=== PATIENT | male | born 1970 | race Caucasian/White ===

== ENCOUNTER 2016-11-28 15:45 | Emergency (ER) | payer SELFPAY ==
[2016-11-28] MEDS ORDERED: Ketorolac 60 MG/2 ML SDV IM ONE (16:22)
--- NOTE | 2016-11-28 16:22 | EDM.PDOC ---
ED HPI GENERAL MEDICAL PROBLEM - General Chief Complaint: Lower Extremity Injury/Pain Stated Complaint: HIP PAIN Time Seen by Provider: 11/28/16 16:10 Source of Information: Reports: Patient History Limitations: Reports: No Limitations - History of Present Illness INITIAL COMMENTS - FREE TEXT/NARRATIVE: History of present illness: [46 are male comes in complaining of right hip pain status post stepping in a hole. Patient indicates that it is painful to ambulate and that he doesn't really per call how it happened.] Review of systems: As per history of present illness and below otherwise all systems reviewed and negative. Past medical history: As per history of present illness and as reviewed below otherwise noncontributory. Surgical history: As per history of present illness and as reviewed below otherwise noncontributory. Social history: No reported history of drug or alcohol abuse. Family history: As per history of present illness and as reviewed below otherwise noncontributory. Physical exam: HEENT: Atraumatic, normocephalic, pupils reactive, negative for conjunctival pallor or scleral icterus, mucous membranes moist, throat clear, neck supple, nontender, trachea midline. Lungs: Clear to auscultation, breath sounds equal bilaterally, chest nontender. Heart: S1S2, regular, negative for clicks, rubs, or JVD. Abdomen: Soft, nondistended, nontender. Negative for masses or hepatosplenomegaly. Negative for costovertebral tenderness. Pelvis: Stable nontender. Genitourinary: Deferred. Rectal: Deferred. Extremities: Atraumatic, negative for cords or calf pain. Neurovascular unremarkable. Neuro: Awake, alert, oriented. Cranial nerves II through XII unremarkable. Cerebellum unremarkable. Motor and sensory unremarkable throughout. Exam nonfocal. Assessment is benign save subjective complaint is noted in the history of present illness X-ray negative for fracture notice of degenerative discs in the lower lumbar spine and sacral region as well as a small osteophyte right humeral head Diagnostics: [A hip x-ray to] Therapeutics: [Toradol 60 mg IM] Impression: [Right hip pain] Plan: [OTC pain meds followup with PCP] Definitive disposition and diagnosis as appropriate pending reevaluation and review of above. Right Hip Pain Score (Numeric/FACES): 10 - Related Data Allergies Allergy/AdvReac Type Severity Reaction Status Date / Time No Known Allergies Allergy Verified 11/28/16 15:58 Home Meds: Home Meds . [No Known Home Meds] 03/29/16 [History] Past Medical History - Past Health History Medical/Surgical History: Denies Medical/Surgical History HEENT History: Reports: None Cardiovascular History: Reports: None Respiratory History: Reports: None Gastrointestinal History: Reports: None Genitourinary History: Reports: None Musculoskeletal History: Reports: Other (See Below) Other Musculoskeletal History: chronic back pain - Infectious Disease History Infectious Disease History: Reports: Chicken Pox, Measles, Mumps - Past Surgical History HEENT Surgical History: Reports: None Social & Family History - Family History Family Medical History: Noncontributory - Tobacco Use Smoking Status *Q: Current Every Day Smoker Years of Tobacco use: 30 Packs/Tins Daily: 1 - Caffeine Use Caffeine Use: Reports: None - Alcohol Use Days Per Week of Alcohol Use: 2 Number of Drinks Per Day: 12 Total Drinks Per Week: 24 - Recreational Drug Use Recreational Drug Use: No Review of Systems - Review of Systems Review Of Systems: See Below (The history of present illness) Trauma Exam - Physical Exam Exam: See Below (See history of present illness) Course - Vital Signs Last Recorded V/S: Last Vital Signs Temp 37.3 C 11/28/16 15:56 Pulse 112 H 11/28/16 15:56 Resp 18 11/28/16 15:56 BP 157/93 H 11/28/16 15:56 Pulse Ox 96 11/28/16 15:56 - Orders/Labs/Meds Orders: Active Orders 24 hr Category Date Time Status Hip Min 2V or 3V w Pelvis Rt [CR] Stat Exams 11/28/16 16:12 Taken Meds: Medications Discontinued Medications Generic Name Dose Route Start Last Admin Trade Name Freq PRN Reason Stop Dose Admin Ketorolac Tromethamine 60 mg 11/28/16 16:22 Toradol IM 11/28/16 16:23 ONETIME ONE Departure - Departure Time of Disposition: 17:19 Disposition: Home, Self-Care 01 Condition: good Clinical Impression: Hip pain - Discharge Information Instructions: Hip Pain Forms: ED Department Discharge Additional Instructions: The following information is given to patients seen in the emergency department who are being discharged to home. This information is to outline your options for follow-up care. We provide all patients seen in our emergency department with a follow-up referral. The need for follow-up, as well as the timing and circumstances, are variable depending upon the specifics of your emergency department visit. If you don't have a primary care physician on staff, we will provide you with a referral. We always advise you to contact your personal physician following an emergency department visit to inform them of the circumstance of the visit and for follow-up with them and/or the need for any referrals to a consulting specialist. The emergency department will also refer you to a specialist when appropriate. This referral assures that you have the opportunity for follow-up care with a specialist. All of these measure are taken in an effort to provide you with optimal care, which includes your follow-up. Under all circumstances we always encourage you to contact your private physician who remains a resource for coordinating your care. When calling for follow-up care, please make the office aware that this follow-up is from your recent emergency room visit. If for any reason you are refused follow-up, please contact the [facility] Emergency Department at and asked to speak to the emergency department charge nurse. Take medication [id number] as needed for hip Followup with PCP in one to 2 days Return to ED as needed as discussed - My Orders Last 24 Hours: My Active Orders 11/28/16 16:12 Hip Min 2V or 3V w Pelvis Rt [CR] Stat - Assessment/Plan Last 24 Hours: My Active Orders 11/28/16 16:12 Hip Min 2V or 3V w Pelvis Rt [CR] Stat
[2016-11-28 18:21] VITALS: BP 146/94
--- NOTE | 2016-11-29 16:49 | CR ---
EXAM DATE: 11/28/16 PATIENT'S AGE: 46 Patient: ISHAN BENSON Facility: [place], [place] Site . Site : 1970 Study: XRay Pelvis Right HIP [id number] 4:36:22 PM Ordering Physician: Doctor Crespo Final Report: HISTORY: Pain and swelling in right hip region after injury 3 days ago. Findings: Three views of the pelvis and right hip are provided. No findings for fracture or dislocation. Minor osteophytic lipping is noted of the lateral margin of the acetabulum bilaterally. Small lateral osteophyte of the right femoral head is also noted. The sacroiliac joints are unremarkable. Severe degenerative disc disease is noted at L5/S1. Impression: Negative study for fracture. Dictated by Bakari Lutz MD @ Nov 28 2016 4:41PM (Electronic Signature) Report Signed by Proxy. JESSA
== END 2016-11-28 17:30 | disposition home or self-care (01) ==
LOC: MW.ED 15:45
DX: M25.551 Pain in right hip (principal); F17.210 Nicotine dependence, cigarettes, uncomplicated
CPT/HCPCS: 73502-26-RT; 73502-RT; 99283

== ENCOUNTER 2016-12-23 18:50 | Emergency (ER) | payer SELFPAY ==
[2016-12-23 19:14] VITALS: BP 139/86
[2016-12-23] MEDS ORDERED: Ibuprofen 800 MG Tab PO ONE (19:18)
[2016-12-23] MEDS ORDERED: Penicillin V Potassium 500 MG Tab PO STA (19:18)
--- NOTE | 2016-12-23 19:38 | EDM.PDOC ---
ED HPI GENERAL MEDICAL PROBLEM - General Chief Complaint: ENT Problem Stated Complaint: TOOTH INFECTION/PAIN Time Seen by Provider: 12/23/16 19:15 Source of Information: Reports: Patient History Limitations: Reports: No Limitations - History of Present Illness INITIAL COMMENTS - FREE TEXT/NARRATIVE: HISTORY AND PHYSICAL: History of present illness: [46-year-old male with a history of severe caries and partially edentulous, now presents to the emergency department complaining of left jaw toothache. Patient has multiple cavities and is not taking care of his teeth. He has not seen a dentist recently. He has swelling adjacent to a cavity and it's sore so he came to the emergency department she is not currently on antibiotics no headache or stiff neck. No chest pain or shortness of breath. Local pain only Otherwise asymptomatic Review of systems: As per history of present illness and below otherwise all systems reviewed and negative. Past medical history: As per history of present illness and as reviewed below otherwise noncontributory. Surgical history: As per history of present illness and as reviewed below otherwise noncontributory. Social history: No reported history of drug or alcohol abuse. Family history: As per history of present illness and as reviewed below otherwise noncontributory. Physical exam: Patient in no acute distress with extremely poor dentition and multiple severe caries. Adjacent left mandibular teeth soft tissue swelling but no fluctuance or crepitus. There is tender and there some mild cheek swelling as well. No tongue elevation. Normal oropharynx. Midline uvula. No oropharyngeal asymmetry. Normal voice no neck asymmetry or mass. No stridor. HEENT: Atraumatic, normocephalic, pupils reactive, negative for conjunctival pallor or scleral icterus, mucous membranes moist, throat clear, neck supple, nontender, trachea midline. Lungs: Clear to auscultation, breath sounds equal bilaterally, chest nontender. Heart: S1S2, regular, negative for clicks, rubs, or JVD. Abdomen: Soft, nondistended, nontender. Negative for masses or hepatosplenomegaly. Negative for costovertebral tenderness. Pelvis: Stable nontender. Genitourinary: Deferred. Rectal: Deferred. Extremities: Atraumatic, negative for cords or calf pain. Neurovascular unremarkable. Neuro: Awake, alert, oriented. Cranial nerves II through XII unremarkable. Cerebellum unremarkable. Motor and sensory unremarkable throughout. Exam nonfocal. Diagnostics: [] Therapeutics: [] Impression: [] Plan: [Signs and symptoms consistent with poor dentition and multiple caries now with an infected cavity. Penicillin and Motrin given in the ED and prescription for penicillin dispensed. No further workup or treatment indicated at this time. No clinical evidence of drainable abscess. Patient is well-appearing heart rate 90 on M.D. exam no murmur. Penicillin prescription He agrees with outpatient follow -up and strict return precautions given Definitive disposition and diagnosis as appropriate pending reevaluation and review of above. Left Lower Tooth/Teeth Pain Score (Numeric/FACES): 10 - Related Data Allergies Allergy/AdvReac Type Severity Reaction Status Date / Time No Known Allergies Allergy Verified 12/23/16 19:12 Home Meds: Home Meds Penicillin V Potassium [IJP: Penicillin V Potassium] 500 mg PO .EVERY 6 HOURS # 40 tab 12/23/16 [Rx] Past Medical History - Past Health History Medical/Surgical History: Denies Medical/Surgical History HEENT History: Reports: None Cardiovascular History: Reports: None Respiratory History: Reports: None Gastrointestinal History: Reports: None Genitourinary History: Reports: None Musculoskeletal History: Reports: Other (See Below) Other Musculoskeletal History: chronic back pain Psychiatric History: Reports: None - Infectious Disease History Infectious Disease History: Reports: Chicken Pox, Mumps - Past Surgical History HEENT Surgical History: Reports: None Social & Family History - Family History Family Medical History: Noncontributory - Tobacco Use Smoking Status *Q: Current Every Day Smoker Years of Tobacco use: 30 Packs/Tins Daily: 1 Used Tobacco, but Quit: No - Caffeine Use Caffeine Use: Reports: None - Alcohol Use Days Per Week of Alcohol Use: 2 Number of Drinks Per Day: 12 Total Drinks Per Week: 24 - Recreational Drug Use Recreational Drug Use: No ED ROS GENERAL - Review of Systems Review Of Systems: See Below (History of present illness) ED EXAM, GENERAL - Physical Exam Exam: See Below (History of present illness) Course - Vital Signs Last Recorded V/S: Last Vital Signs Temp 36.9 C 12/23/16 19:12 Pulse 102 H 12/23/16 19:12 Resp 16 12/23/16 19:12 BP 139/86 12/23/16 19:12 Pulse Ox 99 12/23/16 19:12 - Orders/Labs/Meds Meds: Medications Discontinued Medications Generic Name Dose Route Start Last Admin Trade Name Priya PRN Reason Stop Dose Admin Ibuprofen 800 mg 12/23/16 19:18 12/23/16 19:29 Motrin PO 12/23/16 19:19 800 mg ONETIME ONE Administration Penicillin V Potassium 500 mg 12/23/16 19:18 12/23/16 19:29 Veetids PO 12/23/16 19:19 500 mg NOW STA Administration Departure - Departure Time of Disposition: 19:36 Disposition: Home, Self-Care 01 Condition: Good Clinical Impression: Toothache, Dental caries - Discharge Information Prescriptions: Penicillin V Potassium [IJP: Penicillin V Potassium] 500 mg PO .EVERY 6 HOURS # 40 tab Referrals: PCP,None [Primary Care Provider] - Forms: ED Department Discharge Additional Instructions: You have many cavities in your toothache appears to be a result of one of these cavities becoming infected. Finish penicillin as prescribed. Take ibuprofen 800 mg every 6 hours as needed for pain. He may find an ice pack on your cheek helpful. Follow-up with the dentist in one to 2 days and return immediately for new severe or worsening symptoms
== END 2016-12-23 19:48 | disposition home or self-care (01) ==
LOC: MW.ED 18:50
DX: K02.9 Dental caries, unspecified (principal); F17.210 Nicotine dependence, cigarettes, uncomplicated
CPT/HCPCS: 99282; A9270; 99283

== ENCOUNTER 2017-06-07 13:27 | Emergency (ER) | payer SELFPAY ==
--- NOTE | 2017-06-07 14:01 | EDM.PDOCBH ---
ED HPI GENERAL MEDICAL PROBLEM - General Chief Complaint: Drug or Alcohol Abuse Stated Complaint: INTOXICATION Time Seen by Provider: 06/07/17 13:29 Source of Information: Reports: Patient History Limitations: Reports: No Limitations - History of Present Illness INITIAL COMMENTS - FREE TEXT/NARRATIVE: HISTORY AND PHYSICAL: History of present illness: Patient is a 47-year-old male who presents to the emergency room with complaints of alcohol abuse. He states that he goes on for day "bingers" every couple weeks. Recently he and his split up and he is now homeless. Since that time he states he has been drinking more frequently. Today will enforcement saw him outside and after conversation decided he would be evaluated in the emergency room and look for outpatient alcohol treatment. Denies any drug abuse. Denies any thoughts of self-harm or harming others. Denies any chest pain, shortness of breath, abdominal pain, nausea, vomiting or diarrhea. Denies any recent injury or trauma. Denies any significant health history or illnesses. Does not take any prescription medication or [id number] supplements. Review of systems: As per history of present illness and below otherwise all systems reviewed and negative. Past medical history: As per history of present illness and as reviewed below otherwise noncontributory. Surgical history: As per history of present illness and as reviewed below otherwise noncontributory. Social history: No reported history of drug or alcohol abuse. Family history: As per history of present illness and as reviewed below otherwise noncontributory. Physical exam: Gen.: Unkempt 47-year-old male. Alert and oriented. Appears in no acute distress. HEENT: Atraumatic, normocephalic, pupils reactive, negative for conjunctival pallor or scleral icterus, mucous membranes moist, throat clear, neck supple, nontender, trachea midline. Lungs: Clear to auscultation, breath sounds equal bilaterally, chest nontender. Heart: S1S2, regular rate and rhythm Abdomen: Soft, nondistended, nontender. Negative for masses or hepatosplenomegaly. Negative for costovertebral tenderness. Pelvis: Stable nontender. Genitourinary: Deferred. Rectal: Deferred. Extremities: Atraumatic, negative for cords or calf pain. Neurovascular unremarkable. Neuro: Awake, alert, oriented. Cranial nerves II through XII unremarkable. Cerebellum unremarkable. Motor and sensory unremarkable throughout. Exam nonfocal. After the physical examination on the patient we did discuss his possible treatment options. Option #1 being that he receives a banana bag and routine lab work here and he may follow-up with [facility] as an outpatient for alcohol treatment. #2 is we can arrange for him to be evaluated in [place], as this is the closest inpatient treatment facility, for further evaluation and treatment. He states does not have any insurance nor does he have a vehicle to get to [place] or get home from the facility. He states he is interested in [facility]. Labs showed a potassium of 3.3, 40 mEq of potassium by mouth will be given at this time. We did discuss that he should establish care with a primary care provider, he voices understanding but states that he does not have health insurance and cannot afford it. We talked about the use of [facility] along with [facility]. Those contact information will be given to the patient upon discharge. Patient states he is ready to go home after receiving IV fluids and the Ativan. Vital signs remained stable. He does have a ride here to bring him home. Diagnostics: CBC, CMP, TSH, drug screen Therapeutics: Banana bag, Normal Saline, 40meq Potassium Impression: Alcohol use Hypokalemia Plan: 1. Please stop using alcohol. As we discussed please follow-up with [facility] tomorrow morning. The phone number has been provided for you. If you do change your mind and want inpatient alcohol treatment, closest facility is in . You may present to their emergency department for evaluation and assessment of whether or not you qualify for their program. 2. The [facility] may be able to help you with costs related to outpatient treatment and chcf. 3. Follow-up with her primary care provider in the next 1-2 days. Return to the ED as needed and as discussed Definitive disposition and diagnosis as appropriate pending reevaluation and review of above. Duration: Chronic Back Pain Score (Numeric/FACES): 8 - Related Data Allergies Allergy/AdvReac Type Severity Reaction Status Date / Time No Known Allergies Allergy Verified 06/07/17 13:43 Home Meds: Home Meds . [No Known Home Meds] 06/07/17 [History] Past Medical History - Past Health History Medical/Surgical History: Denies Medical/Surgical History HEENT History: Reports: None Cardiovascular History: Reports: None Respiratory History: Reports: None Gastrointestinal History: Reports: None Genitourinary History: Reports: None Musculoskeletal History: Reports: Other (See Below) Other Musculoskeletal History: chronic back pain Neurological History: Reports: None Psychiatric History: Reports: None Endocrine/Metabolic History: Reports: None Hematologic History: Reports: None Immunologic History: Reports: None Oncologic (Cancer) History: Reports: None Dermatologic History: Reports: None - Infectious Disease History Infectious Disease History: Reports: Chicken Pox - Past Surgical History Head Surgeries/Procedures: Reports: None HEENT Surgical History: Reports: None GI Surgical History: Reports: None Male Surgical History: Reports: None Endocrine Surgical History: Reports: None Musculoskeletal Surgical History: Reports: None Dermatological Surgical History: Reports: None Social & Family History - Family History Family Medical History: Noncontributory - Tobacco Use Smoking Status *Q: Current Every Day Smoker Years of Tobacco use: 30 Packs/Tins Daily: 1 Used Tobacco, but Quit: No - Caffeine Use Caffeine Use: Reports: Coffee - Alcohol Use Days Per Week of Alcohol Use: 2 Number of Drinks Per Day: 12 Total Drinks Per Week: 24 - Recreational Drug Use Recreational Drug Use: No ED ROS GENERAL - Review of Systems Review Of Systems: ROS reveals no pertinent complaints other than HPI. ED EXAM, BEHAVIORAL HEALTH - Physical Exam Exam: See Below (See dictation) COURSE, BEHAVIORAL HEALTH COMP - Course Vital Signs: Last Vital Signs Temp 36.4 C 06/07/17 15:17 Pulse 105 H 06/07/17 15:17 Resp 18 06/07/17 15:17 BP 137/81 06/07/17 15:17 Pulse Ox 95 06/07/17 15:17 Orders, Labs, Meds: Active Orders 24 hr Category Date Time Status Sodium Chloride 0.9% [Normal Saline] 1,000 ml Med 06/07/17 15:45 Active IV ASDIRECTED Medication Orders Sodium Chloride (Normal Saline) 1,000 mls @ 999 mls/hr IV ASDIRECTED ARETHA Last Admin: 06/07/17 15:48 Dose: 999 mls/hr Laboratory Tests 06/07/17 06/07/17 06/07/17 Range/Units 14:10 14:10 14:57 WBC 10.90 (4.0-11.0) K/uL RBC 5.33 (4.50-5.90) M/uL Hgb 17.2 H (13.0-17.0) g/dL Hct 50.6 H (38.0-50.0) % MCV 94.9 (80.0-98.0) fL MCH 32.3 H (27.0-32.0) pg MCHC 34.0 (31.0-37.0) g/dL RDW Std Deviation 52.2 (28.0-62.0) fl RDW Coeff of Yudith 15 (11.0-15.0) % Plt Count 362 (150-400) K/uL MPV 10.70 (7.40-12.00) fL Neut % (Auto) 77.8 (48.0-80.0) % Lymph % (Auto) 16.7 (16.0-40.0) % Berg[place] % (Auto) 4.9 (0.0-15.0) % Eos % (Auto) 0.0 (0.0-7.0) % Baso % (Auto) 0.6 (0.0-1.5) % Neut # (Auto) 8.5 H (1.4-5.7) K/uL Lymph # (Auto) 1.8 (0.6-2.4) K/uL [place] # (Auto) 0.5 (0.0-0.8) K/uL Eos # (Auto) 0.0 (0.0-0.7) K/uL Baso # (Auto) 0.1 (0.0-0.1) K/uL Nucleated RBC % 0.0 /100WBC Nucleated RBCs # 0 K/uL Sodium 144 (136-146) mmol/L Potassium 3.3 L (3.5-5.1) mmol/L Chloride 96 L (98-110) mmol/L Carbon Dioxide 19 L (21-31) mmol/L BUN 13 (6.0-23.0) mg/dL Creatinine 0.8 (0.6-1.5) mg/dL Est Cr Clr Drug Dosing TNP Estimated GFR (MDRD) > 60.0 ml/min Glucose 96 (60-110) mg/dL Calcium 9.2 (8.8-10.8) mg/dL Total Bilirubin 0.6 (0.1-1.5) mg/dL AST 37 (5-40) IU/L ALT 22 (8-54) IU/L Alkaline Phosphatase 100 (40-150) Total Protein 8.4 H (6.0-8.0) g/dL Albumin 4.8 (3.5-5.0) g/dL Globulin 3.6 H (2.0-3.5) g/dL Albumin/Globulin Ratio 1.3 (1.3-2.8) TSH 3rd Generation 0.57 (0.47-5.0) uIU/mL Urine Opiates Screen NEGATIVE (NEGATIVE) Ur Oxycodone Screen NEGATIVE (NEGATIVE) Urine Methadone Screen NEGATIVE (NEGATIVE) Ur Barbiturates Screen NEGATIVE (NEGATIVE) Ur Phencyclidine Scrn NEGATIVE (NEGATIVE) Ur Amphetamine Screen NEGATIVE (NEGATIVE) U Methamphetamines Scrn NEGATIVE (NEGATIVE) U Benzodiazepines Scrn NEGATIVE (NEGATIVE) U Cocaine Metab Screen NEGATIVE (NEGATIVE) U Marijuana (THC) Screen NEGATIVE (NEGATIVE) Medications Generic Name Dose Route Start Last Admin Trade Name Freq PRN Reason Stop Dose Admin Sodium Chloride 1,000 mls @ 999 mls/hr 06/07/17 15:45 06/07/17 15:48 Normal Saline IV 999 mls/hr ASDIRECTED ARETHA Administration Discontinued Medications Generic Name Dose Route Start Last Admin Trade Name Freq PRN Reason Stop Dose Admin Multivitamins/Minerals 10 ml/ 1,011.2 mls @ 999 mls/hr 06/07/17 14:02 14:17 Thiamine HCl 100 mg/ Folic IV 06/07/17 15:02 999 mls/hr Acid 1 mg/ Sodium Chloride ONETIME ONE Administration Lorazepam 1 mg 06/07/17 14:59 06/07/17 15:06 Ativan IVPUSH 06/07/17 15:00 1 mg ONETIME ONE Administration Ondansetron HCl 4 mg 06/07/17 14:59 06/07/17 15:06 Zofran IVPUSH 06/07/17 15:00 4 mg ONETIME ONE Administration Potassium Chloride 40 meq 06/07/17 15:01 06/07/17 15:06 Klor-Con M20 PO 06/07/17 15:02 40 meq ONETIME ONE Administration Departure - Departure Time of Disposition: 15:47 Disposition: Home, Self-Care 01 Clinical Impression: Alcohol abuse, Hypokalemia - Discharge Information Referrals: PCP,None [Primary Care Provider] - Forms: ED Department Discharge Additional Instructions: My general discharge The following information is given to patients seen in the emergency department who are being discharged to home. This information is to outline your options for follow-up care. We provide all patients seen in our emergency department with a follow-up referral. The need for follow-up, as well as the timing and circumstances, are variable depending upon the specifics of your emergency department visit. If you don't have a primary care physician on staff, we will provide you with a referral. We always advise you to contact your personal physician following an emergency department visit to inform them of the circumstance of the visit and for follow-up with them and/or the need for any referrals to a consulting specialist. The emergency department will also refer you to a specialist when appropriate. This referral assures that you have the opportunity for follow-up care with a specialist. All of these measure are taken in an effort to provide you with optimal care, which includes your follow-up. Under all circumstances we always encourage you to contact your private physician who remains a resource for coordinating your care. When calling for follow-up care, please make the office aware that this follow-up is from your recent emergency room visit. If for any reason you are refused follow-up, please contact the [facility] Emergency Department at and asked to speak to the emergency department charge nurse. [facility] Primary [facility] [address] [place] [id number] 1. Please stop using alcohol. As we discussed please follow-up with [facility] tomorrow morning. The phone number has been provided for you. If you do change your mind and want inpatient alcohol treatment, closest facility is in . You may present to their emergency department for evaluation and assessment of whether or not you qualify for their program. 2. The [facility] may be able to help you with costs related to outpatient treatment and chcf. 3. Follow-up with her primary care provider in the next 1-2 days. Return to the ED as needed and as discussed - My Orders Last 24 Hours: My Active Orders 06/07/17 15:45 Sodium Chloride 0.9% [Normal Saline] 1,000 ml IV ASDIRECTED - Assessment/Plan Last 24 Hours: My Active Orders 06/07/17 15:45 Sodium Chloride 0.9% [Normal Saline] 1,000 ml IV ASDIRECTED
[2017-06-07] MEDS ORDERED: MVI, Adult with Vitamin K 10 ML, Thiamine 100 MG, Folic Acid 1 MG in Sodium Chloride 0.... IV ONE ×4 (14:02)
[2017-06-07 14:36] LABS: CHLORIDE,CL 96 mmol/L (98-110); SODIUM,NA 144 mmol/L (136-146)
[2017-06-07] MEDS ORDERED: LORazepam 2 MG/ML SDV IVPUSH ONE (14:59)
[2017-06-07] MEDS ORDERED: Ondansetron 4 MG/2 ML SDV IVPUSH ONE (14:59)
[2017-06-07] MEDS ORDERED: Potassium Chloride 20 MEQ Tab.ER PO ONE (15:01)
[2017-06-07] MEDS ORDERED: Sodium Chloride 0.9% 1,000 ML IV SCH (15:45)
[2017-06-07 17:02] VITALS: BP 151/69
== END 2017-06-07 16:49 | disposition home or self-care (01) ==
LOC: MW.ED 13:27
DX: F10.10 Alcohol abuse, uncomplicated (principal); E87.6 Hypokalemia; F17.210 Nicotine dependence, cigarettes, uncomplicated
CPT/HCPCS: 36415; 80053; 80305; 84443; 85025; 96361; 96365; 96375; 99284; A9270; J2060; J2405; J3411; J7040

== ENCOUNTER 2017-12-23 18:13 | Emergency (ER) | payer SELFPAY ==
[2017-12-23 18:22] VITALS: BP 194/96
--- NOTE | 2017-12-23 18:51 | EDM.PDOC ---
ED HPI GENERAL MEDICAL PROBLEM - General Chief Complaint: General Stated Complaint: MEDICAL CLEARANCE Time Seen by Provider: 12/23/17 18:17 Source of Information: Reports: Patient History Limitations: Reports: No Limitations - History of Present Illness INITIAL COMMENTS - FREE TEXT/NARRATIVE: HISTORY AND PHYSICAL: History of present illness: Patient is a 47-year-old male who presents to the emergency room today with enforcement for medical screening for incarceration. Patient offers no current complaints or concerns at this time. He denies any fever, chills, chest pain, shortness of breath or cough. He denies any abdominal pain, nausea, vomiting, diarrhea or constipation. Recent injury, trauma or illness. Review of systems: As per history of present illness and below otherwise all systems reviewed and negative. Past medical history: As per history of present illness and as reviewed below otherwise noncontributory. Surgical history: As per history of present illness and as reviewed below otherwise noncontributory. Social history: No reported history of drug or alcohol abuse. Family history: As per history of present illness and as reviewed below otherwise noncontributory. Physical exam: General: Well-developed and well-nourished 77-year-old male. Alert and oriented. Nontoxic appearing and in no acute distress. HEENT: Atraumatic, normocephalic, pupils equal and reactive bilaterally, negative for conjunctival pallor or scleral icterus, mucous membranes moist, throat clear, neck supple, nontender, trachea midline. No drooling or trismus noted. No meningeal signs Lungs: Clear to auscultation, breath sounds equal bilaterally, chest nontender. Heart: S1S2, regular rate and rhythm without overt murmur Abdomen: Soft, nondistended, nontender. Negative for masses or hepatosplenomegaly. Negative for costovertebral tenderness. Pelvis: Stable nontender. Genitourinary: Deferred. Rectal: Deferred. Skin: Intact, warm, dry. No lesions or rashes noted. Extremities: Atraumatic, negative for cords or calf pain. Neurovascular unremarkable. Neuro: Awake, alert, oriented. Cranial nerves II through XII unremarkable. Cerebellum unremarkable. Motor and sensory unremarkable throughout. Exam nonfocal. Notes: He offers no current complaints at this time. Patient's blood pressure is elevated, he declines wanting any labs or further evaluation of this at this time. His physical examination is within normal limits. Bedside glucose was 130. Any need for further evaluation or monitoring. He'll be cleared to return with enforcement Diagnostics: [] Therapeutics: [] Impression: Encounter for medical clearance Plan: Please follow-up with your primary care provider in the next 1-2 days. Return to the ED as needed and as discussed. Definitive disposition and diagnosis as appropriate pending reevaluation and review of above. - Related Data Allergies Allergy/AdvReac Type Severity Reaction Status Date / Time No Known Allergies Allergy Verified 12/23/17 18:19 Home Meds: Home Meds . [No Known Home Meds] 06/07/17 [History] Past Medical History - Past Health History Medical/Surgical History: Denies Medical/Surgical History HEENT History: Reports: None Cardiovascular History: Reports: None Respiratory History: Reports: None Gastrointestinal History: Reports: None Genitourinary History: Reports: None Musculoskeletal History: Reports: Other (See Below) Other Musculoskeletal History: chronic back pain Neurological History: Reports: None Psychiatric History: Reports: None Endocrine/Metabolic History: Reports: None Hematologic History: Reports: None Immunologic History: Reports: None Oncologic (Cancer) History: Reports: None Dermatologic History: Reports: None - Infectious Disease History Infectious Disease History: Reports: Chicken Pox - Past Surgical History Head Surgeries/Procedures: Reports: None HEENT Surgical History: Reports: None GI Surgical History: Reports: None Male Surgical History: Reports: None Endocrine Surgical History: Reports: None Musculoskeletal Surgical History: Reports: None Dermatological Surgical History: Reports: None Social & Family History - Family History Family Medical History: Noncontributory - Tobacco Use Smoking Status *Q: Current Every Day Smoker Years of Tobacco use: 20 Packs/Tins Daily: 1 - Caffeine Use Caffeine Use: Reports: Coffee - Recreational Drug Use Recreational Drug Use: No ED ROS GENERAL - Review of Systems Review Of Systems: ROS reveals no pertinent complaints other than HPI. ED EXAM, GENERAL - Physical Exam Exam: See Below (See dictation) Course - Vital Signs Last Recorded V/S: Last Vital Signs Temp 97.5 F 12/23/17 18:20 Pulse 94 12/23/17 18:20 Resp 18 12/23/17 18:20 BP 194/96 H 12/23/17 18:20 Pulse Ox 97 12/23/17 18:20 Departure - Departure Time of Disposition: 18:50 Disposition: Home, Self-Care 01 Clinical Impression: Medical clearance for incarceration - Discharge Information Instructions: Medical Screening Exam Referrals: PCP,None [Primary Care Provider] - Additional Instructions: The following information is given to patients seen in the emergency department who are being discharged to home. This information is to outline your options for follow-up care. We provide all patients seen in our emergency department with a follow-up referral. The need for follow-up, as well as the timing and circumstances, are variable depending upon the specifics of your emergency department visit. If you don't have a primary care physician on staff, we will provide you with a referral. We always advise you to contact your personal physician following an emergency department visit to inform them of the circumstance of the visit and for follow-up with them and/or the need for any referrals to a consulting specialist. The emergency department will also refer you to a specialist when appropriate. This referral assures that you have the opportunity for follow-up care with a specialist. All of these measure are taken in an effort to provide you with optimal care, which includes your follow-up. Under all circumstances we always encourage you to contact your private physician who remains a resource for coordinating your care. When calling for follow-up care, please make the office aware that this follow-up is from your recent emergency room visit. If for any reason you are refused follow-up, please contact the [facility] Emergency Department at and asked to speak to the emergency department charge nurse. [facility] [address] [place] [id number] Please follow-up with your primary care provider in the next 1-2 days. Return to the ED as needed and as discussed.
== END 2017-12-23 18:50 ==
LOC: MW.ED 18:13
DX: Z02.89 Encounter for other administrative examinations (principal); F17.210 Nicotine dependence, cigarettes, uncomplicated
CPT/HCPCS: 82962; 99282